=== PATIENT | male | born 2000 | race American Indian/Alaskan Native ===

== ENCOUNTER 2023-06-12 11:09 | Emergency (ER) | payer MEDICAID ==
[2023-06-12] MEDS ORDERED: Albuterol 6.7 GM Inhaler INH PRN (11:46)
[2023-06-12] MEDS ORDERED: Ketorolac 60 MG/2 ML SDV IM ONE (11:46)
[2023-06-12] MEDS ORDERED: Take Home: predniSONE 20 MG, 2 Tab Pack PO ONE (11:47)
== END 2023-06-12 12:15 | disposition home or self-care (01) ==
LOC: CC.ED 11:09
DX: J10.1 Influenza due to other identified influenza virus with other respiratory manifestations (principal); Z91.048 Other nonmedicinal substance allergy status; Z20.822 Contact with and (suspected) exposure to COVID-19
CPT/HCPCS: 71046; 87804; 96372; 99284; A9270-GY; J1885; J7512; U0002